=== PATIENT | female | born 1960 | race Caucasian/White ===

== ENCOUNTER 2021-06-06 13:50 | Outpatient (CLI) | payer OTHER ==
[2021-06-06 14:53] LABS: #Basophils 0.1 10x3/uL (0.0-0.2); #Eosinphils 0.3 10x3/uL (0.0-0.5); #Monocytes 0.8 10x3/uL (0.0-1.1); #Neutrophils 5.9 10x3/uL (1.5-8.4); %Basophils 0.8 % (0.0-2.0); %Eosinophils 2.8 % (0.0-6.0); %Lymphocytes 21.7 % (18.0-47.0); %Monocytes 8.6 % (0.0-10.0); %Neutrophils 65.8 % (40.0-75.0); Hemoglobin 12.6 g/dL (12.0-15.5); Mean Corpuscular HGB CONC 32.4 g/dL (32.0-36.0); Mean Corpuscular Volume 95.8 fl (81.6-98.3); Mean Platelet Volume 11.9 fl (7.4-10.4); Platelet Count 247 10x3/uL (150-450); RBC Distribution Width 13.5 % (11.5-14.5); Red Blood Cell (RBC) Count 4.06 10x6/uL (3.90-5.03)
[2021-06-06 14:55] LABS: ALT (SGPT) 17 U/L (8-55); AST (SGOT) 14 U/L (5-34); Albumin 4.1 g/dL (3.5-5.0); Alkaline Phosphatase 105 U/L (40-110); Anion Gap 12 mmol/L (10-20); BUN (Urea Nitrogen) 15 mg/dL (9.8-20.1); Bilirubin, Total 0.2 mg/dL (0.2-1.2); Calc. Creatinine Clearance 0 mL/min (70-130); Calcium 9.3 mg/dL (7.8-10.44); Carbon Dioxide 30 mmol/L (22-29); Chloride 103 mmol/L (98-107); Globulin 2.5 g/dL (2.4-3.5); Glucose 93 mg/dL (70-105); Potassium 3.9 mmol/L (3.5-5.1); Protein, Total 6.6 g/dL (6.0-8.3); Sodium 141 mmol/L (136-145)
[2021-06-06 23:08] LABS: SARS-CoV-2 PCR by NAA Not Detected (NotDetected)
[2021-06-07 12:00] VITALS: BMI 23.0
== END 2021-06-06 13:51 | disposition home or self-care (01) ==
LOC: LABBT 13:50
PROVIDERS: ATTEND Surgery
DX: Z01.818 Encounter for other preprocedural examination (principal); K64.2 Third degree hemorrhoids; Z20.822 Contact with and (suspected) exposure to COVID-19
CPT/HCPCS: 80053; 85025; 93005; 93010; U0003; U0005

== ENCOUNTER 2021-06-09 06:49 | Day surgery (SDC) | payer OTHER ==
[2021-06-09] MEDS ORDERED: Fentanyl 250 MCG/5 ML VIAL ONE (08:57)
[2021-06-09] MEDS ORDERED: Xylocaine 1% w/ Epi 1:100K 10 ML VIAL ONE (09:03)
[2021-06-09] MEDS ORDERED: Bupivacaine 0.25% HCL 30 ML VIAL ONE (09:03)
[2021-06-09] MEDS ORDERED: Bacitracin Zinc Ointment 30 gm TUBE ONE (09:03)
[2021-06-09] MEDS ORDERED: cefOXitin 2 GM VIAL ONE (09:20)
[2021-06-09] MEDS ORDERED: Sodium Chloride 0.9% 100 ML ONE (09:20)
[2021-06-09] MEDS ORDERED: Dexamethasone 20 MG/5 ML VIAL ONE (09:29)
[2021-06-09] MEDS ORDERED: Ketorolac Tromethamine 30 MG/ML VIAL ONE (09:29)
[2021-06-09] MEDS ORDERED: ePHEDrine 50 MG/ML VIAL ONE (09:29)
[2021-06-09] MEDS ORDERED: Lidocaine 1% PF 5 ML VIAL ONE (09:29)
[2021-06-09] MEDS ORDERED: PROPOFOL 200 MG/20 ML VIAL ONE (09:29)
[2021-06-09] MEDS ORDERED: Rocuronium Bromide 10 MG/ML (10ML VIAL) ONE (09:29)
[2021-06-09] MEDS ORDERED: Ondansetron PF 4 MG/2 ML Vial ONE (09:29)
[2021-06-09] MEDS ORDERED: Glycopyrrolate 0.2 MG/ML 5 ML SYRINGE ONE (09:29)
== END 2021-06-09 12:24 | disposition home or self-care (01) ==
LOC: SDC 06:49
PROVIDERS: ATTEND Surgery
PROC: 0DBN8ZX Excision of Sigmoid Colon, Via Natural or Artificial Opening Endoscopic, Diagnostic (ICD-10-PCS; principal; 2021-06-09)
PROC: 06BY3ZC Excision of Hemorrhoidal Plexus, Percutaneous Approach (ICD-10-PCS; principal; 2021-06-09)
DX: K64.2 Third degree hemorrhoids (principal); D12.5 Benign neoplasm of sigmoid colon; K60.2 Anal fissure, unspecified; F17.200 Nicotine dependence, unspecified, uncomplicated
CPT/HCPCS: 88304; 88305; J0694; J1100; J1885; J2405; J2704; J3010; J3490; S0020